=== PATIENT | male | born 1985 | race Caucasian/White ===

== ENCOUNTER → 2017-10-06 | Outpatient (CLI) | payer OTHER ==
[~2017-10-06] MED LIST: ENOX80DI8 SQ; OXYC-865 PO; OXYC-870; WARF-1 PO
[2017-10-06 11:22] LABS: PLATELET COUNT, AUTOMATED 294 K/uL (150-450)
== END ==
LOC: LAB 11:09
PROVIDERS: ATTEND Anesthesiology
DX: Z01.812 Encounter for preprocedural laboratory examination (principal); M22.42 Chondromalacia patellae, left knee
CPT/HCPCS: 36415; 85025